=== PATIENT | female | born 1985 | race Caucasian/White ===

== ENCOUNTER 2022-02-23 10:21 | Emergency (ER) | payer OTHER ==
[~2022-02-23] VITALS: Ht 170 cm; Wt 62.5 kg
[2022-02-23 10:54] LABS: BASOPHILS % (AUTO) 0 % (0-10); EOSINOPHILS # (AUTO) 0.1 10^3/uL (0.0-0.3); EOSINOPHILS % (AUTO) 1 % (0-10); HEMATOCRIT 39 % (35-52); HEMOGLOBIN 13.1 g/dL (11.5-16.0); LYMPHOCYTES # (AUTO) 3.5 10^3/uL (1.0-4.0); LYMPHOCYTES % (AUTO) 36 % (12-44); MEAN CORPUSCULAR HEMOGLOBIN 29 pg (25-34); MEAN CORPUSCULAR HGB CONC 34 g/dL (32-36); MEAN CORPUSCULAR VOLUME 85 fL (80-99); MEAN PLATELET VOLUME 9.3 fL (9.0-12.2); MONOCYTES # (AUTO) 0.4 10^3/uL (0.0-1.0); MONOCYTES % (AUTO) 4 % (0-12); NEUTROPHILS # (AUTO) 5.6 10^3/uL (1.8-7.8); NEUTROPHILS % (AUTO) 58 % (42-75); PLATELET COUNT 388 10^3/uL (130-400); WHITE BLOOD COUNT 9.6 10^3/uL (4.3-11.0)
--- NOTE | 2022-02-23 10:59 | ED General ---
General Chief Complaint: Chest Pain Stated Complaint: LEFT SIDE/CHEST/UPPER BACK PAIN Nursing Triage Note: PT STATES BACK SURGERY IN JUNE THAT THEY WENT THROUGH HER ABD FOR, COLONOSCOPY LAST THURSDAY, CC TODAY OF LT LOWER CP THAT RADIATES AROUND TO HER BACK. "HEART WAS POUNDING LAST NIGHT" LIGHT HEADED, CONFUSED, NO BETTER THIS A.M. ALSO FREQUENT URINATION. History of Present Illness Date Seen by Provider: Feb 23, 2022 Time Seen by Provider: 10:48 Initial Comments 36yo female to the ER with complaint of Left lower rib pain. She states she had similar symptoms a few months ago. Seen at an ER and had a CT scan. No etiology found - but they referred her for a GI work up. She had a colonoscopy last week. States its a "burning" pain that wraps around her left lower ribs into her back. No nausea. No vomiting. No actual chest pain. SHe states no SOB. No black or bloody stool. 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 Awaiting scheduled EGD. No fevers, chills, rashes. SOmetimes laying or pressing on the area makes it feel better. 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 Also complains of increased urinary frequency without dysuria. Not a diabetic. All other ROS reviewd anneg except as stated. Timing/Duration: 12-24 Hours Severity: Moderate ("7") Associated Systoms: Chest Pain (left UQ; left flank), Weakness Allergies and Home Medications Allergies Coded Allergies: No Known Drug Allergies (Unverified , 02/23/22) Patient Home Medication List Home Medication List Reviewed: Yes Naproxen (Naprosyn) 500 Mg Tablet, 500 MG PO BID Prescribed by: NISHA OSEI on 02/23/22 1334 Prednisone (Prednisone) 50 Mg Tab, 50 MG PO DAILY Prescribed by: NISHA OSEI on 02/23/22 1334 Review of Systems Review of Systems Constitutional: see HPI EENTM: no symptoms reported Respiratory: no symptoms reported Cardiovascular: no symptoms reported Gastrointestinal: LUQ Genitourinary: frequency : No Musculoskeletal: back pain (left flank) Skin: no symptoms reported All Other Systems Reviewed Negative Unless Noted: Yes Past Syebymj-Fsjbhz-Caiigk Hx Patient Social History Tobacco Use?: No Substance use?: No Alcohol Use?: No Past Medical History Surgery/Hospitalization HX: BACK AND NECK SURGERY Last Menstrual Period: Feb 11, 2022 Physical Exam Vital Signs Vital Signs - First Documented 02/23/22 10:28 Temp 36.7 Pulse 113 Resp 18 B/P (MAP) 141/100 (114) Pulse Ox 100 O2 Delivery Room Air Capillary Refill : Less Than 3 Seconds Height, Weight, BMI Height: '" Weight: lbs. oz. kg; 21.00 BMI Method: General Appearance: WD/WN, Anxious Eyes: Bilateral Eye Normal Inspection, Bilateral Eye PERRL, Bilateral Eye EOMI HEENT: PERRL/EOMI Neck: Normal Inspection Respiratory: Lungs Clear, Normal Breath Sounds, No Accessory Muscle Use, No Respiratory Distress, Other (tenderness along the left lower ribs. No rashes, erythema, swelling/abscess) Cardiovascular: Regular Rate, Rhythm, Normal Peripheral Pulses Gastrointestinal: Soft, Tenderness (LUQ - along lowest rib margin; no palpable abdominal masses or wall defects) Back: Normal Inspection, No Vertebral Tenderness Extremity: Normal Capillary Refill, Normal Inspection, Normal Range of Motion, No Pedal Edema Neurologic/Psychiatric: Alert, Oriented x3, No Motor/Sensory Deficits, Normal Mood/Affect Skin: Normal Color, Warm/Dry Progress/Results/Core Measures Suspected Sepsis SIRS Temperature: Pulse: 113 Respiratory Rate: 18 Laboratory Tests 02/23/22 10:45: White Blood Count 9.6 Blood Pressure 141 /100 Mean: 114 Laboratory Tests 02/23/22 10:45: Creatinine 0.92, INR Comment 0.9, Platelet Count 388, Total Bilirubin 0.5 Results/Orders Lab Results Laboratory Tests Test 02/23/22 10:45 02/23/22 11:00 Range/Units White Blood Count 9.6 4.3-11.0 10^3/uL Red Blood Count 4.57 3.80-5.11 10^6/uL Hemoglobin 13.1 11.5-16.0 g/dL Hematocrit 39 35-52 % Mean Corpuscular Volume 85 80-99 fL Mean Corpuscular Hemoglobin 29 25-34 pg Mean Corpuscular Hemoglobin Concent 34 32-36 g/dL Red Cell Distribution Width 12.7 10.0-14.5 % Platelet Count 388 130-400 10^3/uL Mean Platelet Volume 9.3 9.0-12.2 fL Immature Granulocyte % (Auto) 0 % Neutrophils (%) (Auto) 58 42-75 % Lymphocytes (%) (Auto) 36 12-44 % Monocytes (%) (Auto) 4 0-12 % Eosinophils (%) (Auto) 1 0-10 % Basophils (%) (Auto) 0 0-10 % Neutrophils # (Auto) 5.6 1.8-7.8 10^3/uL Lymphocytes # (Auto) 3.5 1.0-4.0 10^3/uL Monocytes # (Auto) 0.4 0.0-1.0 10^3/uL Eosinophils # (Auto) 0.1 0.0-0.3 10^3/uL Basophils # (Auto) 0.0 0.0-0.1 10^3/uL Immature Granulocyte # (Auto) 0.0 0.0-0.1 10^3/uL Prothrombin Time 13.0 12.2-14.7 SEC INR Comment 0.9 0.8-1.4 Activated Partial Thromboplast Time 30 24-35 SEC D-Dimer 0.34 0.00-0.49 UG/ML Sodium Level 138 135-145 MMOL/L Potassium Level 3.9 3.6-5.0 MMOL/L Chloride Level 104 98-107 MMOL/L Carbon Dioxide Level 25 21-32 MMOL/L Anion Gap 9 5-14 MMOL/L Blood Urea Nitrogen 10 7-18 MG/DL Creatinine 0.92 0.60-1.30 MG/DL Estimat Glomerular Filtration Rate 84 BUN/Creatinine Ratio 11 Glucose Level 88 70-105 MG/DL Calcium Level 10.0 8.5-10.1 MG/DL Corrected Calcium 8.5-10.1 MG/DL Magnesium Level 2.0 1.6-2.4 MG/DL Total Bilirubin 0.5 0.1-1.0 MG/DL Aspartate Amino Transf (AST/SGOT) 20 5-34 U/L Alanine Aminotransferase (ALT/SGPT) 17 0-55 U/L Alkaline Phosphatase 47 40-136 U/L Troponin I < 0.028 <0.028 NG/ML Total Protein 7.4 6.4-8.2 GM/DL Albumin 4.6 H 3.2-4.5 GM/DL Urine Color YELLOW Urine Clarity CLEAR Urine pH 6.0 5-9 Urine Specific [place] 1.020 1.016-1.022 Urine Protein NEGATIVE NEGATIVE Urine Glucose (UA) NEGATIVE NEGATIVE Urine Ketones NEGATIVE NEGATIVE Urine Nitrite NEGATIVE NEGATIVE Urine Bilirubin NEGATIVE NEGATIVE Urine Urobilinogen 0.2 < = 1.0 MG/DL Urine Leukocyte Esterase NEGATIVE NEGATIVE Urine RBC (Auto) NEGATIVE NEGATIVE Urine RBC NONE /HPF Urine WBC RARE /HPF Urine Squamous Epithelial Cells 0-2 /HPF Urine Crystals NONE /LPF Urine Bacteria FEW H /HPF Urine Casts NONE /LPF Urine Mucus NEGATIVE /LPF Urine Culture Indicated NO My Orders Orders - NISHA OSEI MD Cbc With Automated Diff (02/23/22 10:39) Magnesium (02/23/22 10:39) Chest 1 View, Ap/Pa Only (02/23/22 10:39) Ekg Tracing (02/23/22 10:39) Comprehensive Metabolic Panel (02/23/22 10:39) Protime With Inr (02/23/22 10:39) Partial Thromboplastin Time (02/23/22 10:39) O2 (02/23/22 10:39) Monitor-Rhythm Ecg Trace Only (02/23/22 10:39) Ed Iv/Invasive Line Start (02/23/22 10:39) Troponin I Ailyn (02/23/22 10:39) Fibrin Degradation Products (02/23/22 10:39) Urine Bedside (02/23/22 10:39) Ua Culture If Indicated (02/23/22 10:59) Ketorolac Injection (Toradol Injection) (02/23/22 12:00) Ct Abdomen/Pelvis Wo (02/23/22 12:55) Orphenadrine Inj (Ed Only) (Norflex Inje (02/23/22 13:00) Prednisone Tablet (Deltasone Tablet) (02/23/22 13:45) Medications Given in ED Vital Signs/I&O 02/23/22 02/23/22 02/23/22 10:28 12:02 13:55 Temp 36.7 36.7 36.8 Pulse 113 63 Resp 18 18 B/P (MAP) 141/100 (114) 106/80 Pulse Ox 100 98 O2 Delivery Room Air Room Air Capillary Refill : Less Than 3 Seconds Blood Pressure Mean: 114 Progress Note : Time: 12:54 Progress Note patient re-examined. still with same intensity of pain. Decided even with normal labs to go ahead and do a noncontrast CT abdomen. Concern maybe for atypical presentation of renal stone, even tho no blood in urine. This too, was negative. More pain meds given and prednisone. Her exam is really benign, no clinical or objective findings to warrant further investigation - she has stable VS, No concern for PE - CTA for PE considered, but history and physical exam and previous findings do not support need. Patient encouraged to follow up with her PCP. Return precautions provided. Diagnostic Imaging Diagonstic Imaging: Xray Plain Films/CT/US/NM/MRI: chest Comments [facility] [place], [place] NAME: [facility] REC#: [id number] PT STATUS: REG ER : 1985 PHYSICIAN: NISHA OSEI MD ADMIT DATE: 02/23/22/ER Signed Date of Exam:02/23/22 CHEST 1 VIEW, AP/PA ONLY EXAMINATION: Chest 1 view HISTORY: Chest pain COMPARISON: None available. FINDINGS: The lungs are clear without edema or pneumonia. No pleural effusion or pneumothorax. Heart size is normal. IMPRESSION: 1. Clear lungs. Dictated by: Dictated on workstation # [id number] Dict: 02/23/22 1125 Trans: 02/23/22 1145 [id number] Interpreted by: RODRI MOHAN MD Electronically signed by: RODRI MOHAN MD 02/23/22 1145 Diagonstic Imaging: CT Comments [facility]. [place], [place] NAME: [facility] REC#: [id number] PT STATUS: REG ER : 1985 PHYSICIAN: NISHA OSEI MD ADMIT DATE: 02/23/22/ER Draft Date of Exam:02/23/22 CT ABDOMEN/PELVIS WO PROCEDURE: CT abdomen and pelvis without contrast. TECHNIQUE: Multiple contiguous axial images were obtained through the abdomen and pelvis without the use of intravenous contrast. Auto Exposure Controls were utilized during the CT exam to meet ALARA standards for radiation dose reduction. INDICATION: Left flank pain. COMPARISON: None. FINDINGS: The lung bases are clear. The liver, gallbladder, pancreas, spleen, adrenals, kidneys, collecting systems and bladder are negative on this noncontrast exam. IUD. Normal appendix. No free intraperitoneal air. Scant fluid dependently in the pelvis. No lymphadenopathy. No evidence of bowel obstruction. No acute osseous findings. Anterior interbody fusion at L5-S1. Chronic bilateral L5 pars defects. IMPRESSION: No acute CT findings in the outer pelvis on this noncontrast exam. Scant free fluid in the pelvis is likely physiologic. Dictated on workstation # [id number] Dict: 02/23/22 1315 Trans: 02/23/22 1321 [facility] [id number] Interpreted by: RANJITH ROSALES MD Electronically signed by: Departure Impression Primary Impression: Rib pain on left side Additional Impression: Costochondritis, acute Disposition: HOME, SELF-CARE Condition: Stable Departure-Patient Inst. Decision time for Depature: 13:32 Referrals: NO,LOCAL PHYSICIAN (PCP/Family) Primary Care Physician Patient Instructions: Costochondritis (DC) Add. Discharge Instructions: Drink plenty of fluids to stay well-hydrated. Take naproxen, 500 mg twice daily for the next 5 days with food for pain. I have also given you prednisone, 50 mg tablets take 1 a day for the next 4 days starting tomorrow. Your first dose has been given here in the emergency department. If you develop a fever, vomiting, rash or any other emergent, concerning symptoms please return to the emergency room for reevaluation. Scripts Prednisone (Prednisone) 50 Mg Tab 50 MG PO DAILY, #4 TAB Prov: NISHA OSEI MD 02/23/22 Naproxen (Naprosyn) 500 Mg Tablet 500 MG PO BID, #10 TAB 0 Refills Prov: NISHA OSEI MD 02/23/22 NISHA OSEI MD Feb 23, 2022 10:59
[2022-02-23 11:07] LABS: BILIRUBIN,URINE NEGATIVE (NEGATIVE); CLARITY,URINE CLEAR; COLOR,URINE YELLOW; GLUCOSE, URINE (UA) NEGATIVE (NEGATIVE); KETONES,URINE NEGATIVE (NEGATIVE); LEUKOCYTE ESTERASE ,URINE NEGATIVE (NEGATIVE); NITRITE,URINE NEGATIVE (NEGATIVE); PROTEIN,URINE NEGATIVE (NEGATIVE)
[2022-02-23 11:09] LABS: ALBUMIN 4.6 GM/DL (3.2-4.5); CHLORIDE 104 MMOL/L (98-107); INR 0.9 (0.8-1.4); POTASSIUM 3.9 MMOL/L (3.6-5.0); SODIUM 138 MMOL/L (135-145)
[2022-02-23 11:11] LABS: GLUCOSE 88 MG/DL (70-105); TOTAL PROTEIN 7.4 GM/DL (6.4-8.2)
[2022-02-23 11:12] LABS: CARBON DIOXIDE 25 MMOL/L (21-32)
[2022-02-23 11:13] LABS: BILIRUBIN,TOTAL 0.5 MG/DL (0.1-1.0)
[2022-02-23 11:15] LABS: ALKALINE PHOSPHATASE 47 U/L (40-136); CREATININE SERUM 0.92 MG/DL (0.60-1.30); GFR ESTIMATED 84
[2022-02-23 11:16] LABS: BACTERIA,URINE FEW /HPF; SQUAMOUS EPITHELIAL CELL,UR 0-2 /HPF; WBC,URINE RARE /HPF
[2022-02-23 11:16] LABS: BUN/CREATININE RATIO 11
[2022-02-23 11:18] LABS: ALANINE AMINOTRANSFERASE 17 U/L (0-55)
--- NOTE | 2022-02-23 11:32 | Diagnostic Imaging Report ---
EXAMINATION: Chest 1 view HISTORY: Chest pain COMPARISON: None available. FINDINGS: The lungs are clear without edema or pneumonia. No pleural effusion or pneumothorax. Heart size is normal. IMPRESSION: 1. Clear lungs. Dictated by: Dictated on workstation # [id number]
[2022-02-23] MEDS ORDERED: KETOROLAC 30 MG/ML VIAL IVP ONE (12:00)
[2022-02-23] MEDS ORDERED: NS 100 ML (IVPB) BAG IV ONE (13:00)
[2022-02-23] MEDS ORDERED: ORPHENADRINE 60 MG/2 ML (NORFLEX) AMP (ED ONLY) IV ONE (13:00)
[2022-02-23] MEDS ORDERED: CATHETER FLUSH 10 ML SYR IV PRN (13:00)
[2022-02-23] MEDS ORDERED: IOHEXOL 350 MG/ML 100 ML (OMNIPAQUE 350) VIAL IV ONE (13:00)
--- NOTE | 2022-02-23 13:21 | Diagnostic Imaging Report ---
PROCEDURE: CT abdomen and pelvis without contrast. TECHNIQUE: Multiple contiguous axial images were obtained through the abdomen and pelvis without the use of intravenous contrast. Auto Exposure Controls were utilized during the CT exam to meet ALARA standards for radiation dose reduction. INDICATION: Left flank pain. COMPARISON: None. FINDINGS: The lung bases are clear. The liver, gallbladder, pancreas, spleen, adrenals, kidneys, collecting systems and bladder are negative on this noncontrast exam. IUD. Normal appendix. No free intraperitoneal air. Scant fluid dependently in the pelvis. No lymphadenopathy. No evidence of bowel obstruction. No acute osseous findings. Anterior interbody fusion at L5-S1. Chronic bilateral L5 pars defects. IMPRESSION: No acute CT findings in the outer pelvis on this noncontrast exam. Scant free fluid in the pelvis is likely physiologic. Dictated by: Dictated on workstation # [id number]
[2022-02-23] MEDS ORDERED: PRD50T PO (13:34)
[2022-02-23] MEDS ORDERED: NAPR-1071 PO (13:34)
[2022-02-23] MEDS ORDERED: predniSONE 20 MG TAB PO ONE (13:45)
[2022-02-23 13:55] VITALS: BP 106/80
== END 2022-02-23 13:55 | disposition home or self-care (01) ==
LOC: ER 10:24
DX: M94.0 Chondrocostal junction syndrome [Tietze] (principal); Z28.310 Unvaccinated for COVID-19
CPT/HCPCS: 36415; 71045; 74176; 80053; 81000; 83735; 84484; 84703; 85025; 85379; 85610; 85730; 93005; 93041